=== PATIENT | female | born 1980 | race Caucasian/White ===

== ENCOUNTER 2019-04-11 22:04 | Observation (INO) ==
[2019-04-11] MEDS ORDERED: Metoclopramide 10 MG/2 ML VIAL IVP ONE (22:44)
[2019-04-11] MEDS ORDERED: 0.9 % Sodium Chloride 1,000 ML IVC ONE (22:44)
[2019-04-11] MEDS ORDERED: Ketorolac 15 MG/ML VIAL IVP ONE (22:44)
[2019-04-11 22:59] LABS: Basophils % 0.1 %; Eosinophils % 0.1 %; Hematocrit 41.2 % (35.3-44.9); Hemoglobin 13.8 g/dL (11.5-15.4); Immature Granulocytes % 0.7 % (0-4); Lymphocytes # 0.8 K/mcL (0.6-4.6); Lymphocytes % 11.6 %; Mean Corpuscular HGB Conc 33.5 g/dL (31.6-35.5); Mean Corpuscular Hemoglobin 29.1 pg (28.0-33.3); Mean Corpuscular Volume 86.7 fL (83.0-100.0); Mean Platelet Volume 10.8 fL (9.4-12.4); Monocytes # 0.4 K/mcL (0.0-1.3); Monocytes % 6.2 %; Neutrophils # 5.8 K/mcL (1.6-8.9); Platelet Count 191 K/mcL (140-400); Red Blood Count 4.75 M/mcL (3.82-4.97); Red Cell Distribution Width 13.2 % (11.5-14.5); Segmented Neutrophils % 81.3 %; White Blood Count 7.1 K/mcL (4.3-11.1)
[2019-04-11 23:10] LABS: Estimated Average Glucose 154 mg/dl
[2019-04-11 23:27] LABS: Alanine Aminotransferase 25 Units/L (7-52); Albumin/Globulin Ratio 1.5 (1.1-2.2); Alkaline Phosphatase 53 Units/L (34-104); Aspartate Amino Transferase 16 Units/L (13-39); BUN/Creatinine Ratio 22 (6-26); Bilirubin,Total 0.5 mg/dL (0.3-1.0); Blood Urea Nitrogen 14 mg/dL (6-20); Calcium 8.4 mg/dL (8.6-10.3); Carbon Dioxide 27 mEq/L (23-29); Chloride 100 mEq/L (98-107); Globulin 2.6 g/dL (2.4-3.5); Glucose 166 mg/dL (70-105); Osmolality,Calculated 286 (280-300); Potassium 3.4 mEq/L (3.5-5.1); Sodium 136 mEq/L (136-145); Total Protein 6.6 g/dL (6.4-8.9); eGFR For African Americans > 60 (> 60); eGFR For Non-African Americans > 60 (> 60)
[2019-04-12] MEDS ORDERED: Aspirin 325 MG TABLET PO ONE (01:08)
[2019-04-12 07:11] LABS: Chol/HDL Ratio 4.1 (0-4.9)
[2019-04-12] MEDS ORDERED: *HR* OxyCODONE Immed Rel 5 MG TABLET PO PRN (09:15)
[2019-04-12] MEDS ORDERED: Ibuprofen 400 MG TABLET PO PRN (09:15)
[2019-04-12] MEDS ORDERED: *HR* Promethazine 25 MG/ML VIAL IVP PRN (09:15)
[2019-04-12] MEDS ORDERED: Naloxone 0.4 MG/ML INJ IVP PRN (09:15)
[2019-04-12] MEDS ORDERED: Ondansetron 4 MG/2 ML VIAL IVP PRN (09:15)
[2019-04-12 10:19] LABS: Magnesium 1.6 mg/dL (1.6-2.6)
[2019-04-12] MEDS ORDERED: Ketorolac 15 MG/ML VIAL IVP PRN (11:21)
[2019-04-12 18:55] VITALS: BP 116/72
== END 2019-04-12 19:56 | disposition home or self-care (01) ==
LOC: EMEROOARM 22:04 → CDU 22:04 → SUATTDRO 04-12 03:57 → CDU 04-12 04:16
PROVIDERS: ADMIT Family Medicine; ATTEND Family Medicine